=== PATIENT | male | born 2000 | race Caucasian/White ===

== ENCOUNTER 2020-07-25 03:48 | Emergency (ER) | payer BC ==
[~2020-07-25] VITALS: Ht 182.9 cm; Wt 68.2 kg
[2020-07-25 05:45] VITALS: BP 118/68; PULSE 64; TEMP 98.5
== END 2020-07-25 05:56 | disposition home or self-care (01) ==
LOC: COL.ER 03:48
DX: S53.401A Unspecified sprain of right elbow, initial encounter (principal); G60.8 Other hereditary and idiopathic neuropathies; W21.01XA Struck by football, initial encounter; Y93.61 Activity, american tackle football; Y92.219 Unspecified school as the place of occurrence of the external cause